=== PATIENT | male | born 1955 | race Caucasian/White ===

== ENCOUNTER 2024-05-04 18:43 | Emergency (ER) | payer OTHER ==
[~2024-05-04] VITALS: Ht 182.9 cm; Wt 124.9 kg
[2024-05-05] MEDS: LIDOCAINE 2% MDV 20ML VIAL SC ONE (03:03)
[2024-05-05] MEDS: ANEXSIA, NORCO 7.5MG/325MG TABLET(HYDROCODONE/APAP) PO ONE (03:04)
[2024-05-05] MEDS: DERMABOND TOPICAL SKIN ADHESIVE TOP ONE (03:10)
[2024-05-05] MEDS: BOOSTRIX VACCINE (TETANUS/DIPHTH/ACEL. PERTUSSIS) 0.5ML SYR IM ONE (04:56)
[2024-05-05 05:00] VITALS: BP 134/65; TEMP 98.4; O2SAT 99
[2024-05-05] MEDS: NORCO 5/325MG TABLET (HOME DOSE PACK) PO ONE (05:24)
== END 2024-05-05 05:34 | disposition home or self-care (01) ==
LOC: M ED 18:43
DX: S61.012A Laceration without foreign body of left thumb without damage to nail, initial encounter (principal); S61.211A Laceration without foreign body of left index finger without damage to nail, initial encounter; W31.2XXA Contact with powered woodworking and forming machines, initial encounter; I10 Essential (primary) hypertension; Y92.009 Unspecified place in unspecified non-institutional (private) residence as the place of occurrence of the external cause; Y93.89 Activity, other specified; Y99.9 Unspecified external cause status; Z85.46 Personal history of malignant neoplasm of prostate; Z23 Encounter for immunization